=== PATIENT | female | born 1980 | race Caucasian/White ===

== ENCOUNTER 2019-09-19 07:31 | Emergency (ER) | payer OTHER ==
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
[2019-09-19 08:22] VITALS: BP 0/0; PULSE 0; RESP 0; TEMP 0
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
== END 2019-09-19 11:16 | disposition expired ==
LOC: EC 07:31 → EDBD 07:31 → EC 11:16
DX: I46.9 Cardiac arrest, cause unspecified (principal); S70.12XA Contusion of left thigh, initial encounter; S60.221A Contusion of right hand, initial encounter; S70.11XA Contusion of right thigh, initial encounter; S80.01XA Contusion of right knee, initial encounter; S30.811A Abrasion of abdominal wall, initial encounter; V53.5XXA Driver of pick-up truck or van injured in collision with car, pick-up truck or van in traffic accident, initial encounter; Y92.410 Unspecified street and highway as the place of occurrence of the external cause; Y93.89 Activity, other specified; Y99.0 Civilian activity done for income or pay
CPT/HCPCS: 99291